=== PATIENT | male | born 1970 | race Caucasian/White ===

== ENCOUNTER 2023-10-08 09:50 | Emergency (ER) | payer BC, SELFPAY ==
[2023-10-08 10:11] VITALS: BP 133/83
--- NOTE | 2023-10-08 14:39 | ED.GENMED ---
History of Present Illness
General
Chief Complaint: Rectal Bleeding
Source: patient
Exam Limitations: none
Time Seen by Provider: 10/08/23 14:07
Nursing documentation reviewed up to this point in time: agreed with
Travel History
Have you had any contact with someone who has COVID-19?: No
Do you have any symptoms of coronavirus? Fever > 100 degrees, chills, cough, shortness of breath, sore throat, loss of taste or smell, muscle aches, or headache?: No
History of Present Illness
History of Present Illness:
53-year-old male with no past medical problems
Has had occasional rectal bleeding likely secondary to hemorrhoids and has had hemorrhoidal banding twice
Family history father with colon cancer
Patient is due for colonoscopy but has never had any polyps presents for rectal bleeding. Patient said he had COVID last week
And had a cough and a fever and GI symptoms with pretty bad diarrhea. Diarrhea was nonbloody initially. He says his COVID symptoms got much better but he started noticing blood mixed with his stool 6 days ago. Each day he has had 1 or at most 2
episodes of red blood in the toilet mixed with stool. Patient says that it has been larger volume in the last couple of times and color the whole toilet bowl red. It is sometimes dark red and sometimes bright red. He has no rectal pain or
abdominal pain with these bowel movements. He last had 1 episode today. He
Phy Exam
Physical Exam
Physical Exam:
GENERAL: Alert , in no apparent distress
EYE: pupils equal and reactive
NECK: Supple
ENT: o/p clr, mmm.
CARDIAC: Regular rate and rhythm .
LUNGS: Clear breath sounds bilaterally, no acute respiratory distress, no wheezes/rales/rhonchi
ABDOMEN: Soft, without focal tenderness, no r/g, no cvat, normal bowel sounds
Small external nonbleeding hemorrhoid, nontender, heme-positive brown stool,
NEUROLOGICAL: Alert and oriented, no focal neuro deficits
SKIN: Warm and dry, skin intact.
MUSCULOSKELETAL: No edema, well perfused. neg keith's sign
PSYCH: Normal and appropriate interaction.
Course
Orders/Labs/Results
Orders:
Orders
10/08/23 14:37
CT Abd/Pel (IV only)-[facility] only Urgent
Comment:
Reason For Exam: rectal bleeding after covid
0.9% Sodium Chloride 1000 ml [Nss] 1,000 ml IV BOLUS
10/08/23 14:42
Type+Screen Urgent
Complete Blood Count/With Diff Urgent
Comprehensive Metabolic Panel Urgent
Lactic Acid Urgent
Lipase Urgent
Abnormal Lab Results
10/08/23
14:42
RBC 4.08 L 10^6/uL
(4.70-6.10)
Hgb 12.8 L g/dL
(13.0-18.0)
Hct 36.8 L %
(39.0-52.0)
MCH 31.4 H pg
(27.0-31.0)
Carbon Dioxide 31 H mmol/L
(22-30)
Creatinine 0.6 L mg/dL
(0.7-1.3)
Glucose 103 H mg/dl
(70-99)
10/08/23 14:42
10/08/23 14:42
Vital Signs
Initial and Last Documented VS:
Initial Vital Signs
Temp Pulse Resp BP Pulse Ox
98.1 F 69 14 133/83 100
10/08/23 10:11 10/08/23 10:11 10/08/23 10:11 10/08/23 10:11 10/08/23 10:11
Last Documented Vital Signs
Temp Pulse Resp BP Pulse Ox
98.3 F 75 16 130/80 96
10/08/23 17:48 10/08/23 17:48 10/08/23 17:48 10/08/23 17:48 10/08/23 17:48
MDM/Problems Addressed
Differential Diagnosis Includes:
divertic, ischemic colitis, internal hemorrhoids
MDM/Problems Addressed:
53 y/o M with h/o iternal and ext hemorrhoids in the past banded x 2
had covid last week
diarrhea for 1 day
then since has had 1 episode of painless BRBPR with stool
Has had larger volume today coloring the toilet bowl without clots. The stool still brown. He is having no pain. He is not having diarrhea. He has no fever or chills or abdominal discomfort. He is not on any anticoagulants. On exam the patient
is well-appearing with stable vital signs and nontender abdomen. His rectal exam shows a small nonbleeding external hemorrhoid and no obvious palpable internal hemorrhoids. His stool was heme positive light brown. There is no rectal bleeding on
my exam. Patient does report he sometimes uses a butt plug during intercourse but has not in over a week.
Labs show a stable hemoglobin of 12.8, BUN was 31, given a liter of fluid, normal lactic acid, CT with IV contrast shows no colitis, mild stool in the colon, no diverticulitis
Discussed with colorectal on-call. Will arrange outpatient follow-up. Patient will be given instructions for Metamucil daily and then Preparation H daily suppository for 3 to 5 days. Return precautions. No episodes here
*Critical Care Note
Total Time (30-74mins, 75-104mins- exclusive of procedures): Not Applicable
ED Attending Note
-
Portions of this chart may have been created with voice recognition software.� Occasional wrong word or��sound alike� substitutions may have occurred due to the inherent limitations of voice recognition software.
Discharge Plan
Departure
Patient Disposition: Home (Routine Discharge)
Date of Disposition: 10/08/23
Time of Disposition: 18:27
Patient with high blood pressure during this ER visit?: No
Condition: Fair
Covid-19: Not Applicable
Discharge Problem:
GI bleed
Instructions: Hemorrhoids (DC), Gastrointestinal Bleeding (DC)
Prescriptions:
No Action
No Current Medications
0
Referrals:
Cullen Bianchi MD [Active] - Follow up in 5-7 days ([facility])
NONE,* [Family Provider] -
Activity Restrictions/Additional Instructions:
Take Metamucil once a day to keep your stools soft. Use a Preparation H suppository with 0.25% phenylephrine once a day for the next 5 days. You need to speak with the colorectal doctor for follow-up, you may need a colonoscopy and possible
banding of hemorrhoids. Your CAT scan did not show any significant findings. You do still have stool in your colon. Return to the ER for any concerns like severe bleeding, passing out or lightheadedness, nausea or vomiting, fever, pain or any
concerns. Please do not place anything in your rectum until this fully clears up.
Interventions
Interventions:
*Risk Screen - Suicide Last Done: 10/08/23 17:10
*General Assessment Last Done: 10/08/23 14:38
*Neglect/Abuse Screening Last Done: 10/08/23 17:10
ED- Fall Risk Assessment Last Done: 10/08/23 14:38
*ED COVID-19 Vaccine History Last Done: 10/08/23 10:16
*Nursing Disposition Last Done: 10/08/23 18:47
XL-Emknzt-Lqrfwwlwmm Assessment Last Done: 10/08/23 14:38
ED- Cardiac Assessment Last Done: 10/08/23 14:38
ED- Pulmonary Assessment Last Done: 10/08/23 14:38
Discharge Date and Time
Discharge Date/Time: 10/08/23 18:48
Print Language: RWANDAN
[2023-10-08] MEDS: NSS 1000 IV (14:41)
[2023-10-08 14:44] VITALS: BMI 24.4
[2023-10-08 15:02] LABS: % Basophils 0.5 % (0-2); % Eosinophils 1.5 % (0-6); % Immature Granulocytes 0.2 % (0-0.5); % Lymphocytes 23.5 % (20.5-51.1); % Monocytes 7.1 % (1.7-9.3); % Neutrophils 67.2 % (42.2-75.2); Absolute Eosinophils 0.1 10^3/uL (0-0.7); Absolute Lymphocytes 1.4 10^3/uL (1.2-3.4); Absolute Monocytes 0.4 10^3/uL (0.1-0.6); Hematocrit 36.8 % (39.0-52.0); Hemoglobin 12.8 g/dL (13.0-18.0); Mean Corp Hgb Conc. 34.8 g/dL (33.0-37.0); Mean Corpuscular Hgb 31.4 pg (27.0-31.0); Mean Corpuscular Volume 90.2 fL (80.0-94.0); Mean Platelet Volume 8.8 fL (7.4-10.4); Nucleated Red Blood Cells % 0 % (-); Platelet Count 235 10^3/uL (130-400); Red Blood Cell Count 4.08 10^6/uL (4.70-6.10); White Blood Cell Count 5.9 10^3/uL (4.8-10.8)
[2023-10-08 15:09] LABS: Lactic Acid 0.8 mmol/L (0.7-2.0)
[2023-10-08 15:10] LABS: ALT (SGPT) 15 U/L (0-50); AST (SGOT) 23 U/L (17-59); Alkaline Phosphatase 46 U/L (38-126); Blood Urea Nitrogen 18 mg/dl (9-20); Carbon Dioxide 31 mmol/L (22-30); Chloride 103 mmol/L (98-107); Estimated Creatinine Clearance > 125 ml/min; Glucose 103 mg/dl (70-99); Lipase 110 U/L (23-300); Potassium 4.3 mmol/L (3.5-5.1); Sodium 138 mmol/L (135-145); Total Bilirubin 0.5 mg/dl (0.2-1.3); Total Protein 6.7 g/dl (6.3-8.2); eGFR > 60.00
[2023-10-08 17:48] VITALS: BP 130/80
== END 2023-10-08 18:48 | disposition home or self-care (01) ==
LOC: EMR 09:50
PROVIDERS: Physician Assistant; EMERGENCY PHYSICIAN Student in an Organized Health Care Education/Training Program
DX: K92.2 Gastrointestinal hemorrhage, unspecified (principal); K64.4 Residual hemorrhoidal skin tags
CPT/HCPCS: 99285; 96360; 74177; 80053; 83605; 83690; 85025; 86850; 86900; 86901; Q9967